=== PATIENT | male | born 1975 | race Caucasian/White ===

== ENCOUNTER → 2018-08-12 | Outpatient (CLI) | payer OTHER ==
[~2018-08-12] MED LIST: INSULIN-HUMA100 U/ML; LANTUS100 U/ML
== END | disposition home or self-care (01) ==
LOC: LAB 08:53
DX: E10.65 Type 1 diabetes mellitus with hyperglycemia (principal)

== ENCOUNTER → 2019-06-30 | Outpatient (CLI) | payer OTHER ==
[2019-06-30 11:13] LABS: FREE T4 1.1 ng/dl (0.76-1.46)
[2019-06-30 11:18] LABS: THYROID STIM HORMONE (HS) 0.005 uIU/ml (0.358-4.75)
[2019-07-01 06:11] LABS: THYROID PEROXIDASE (TPO) AB 9 IU/mL (0-34)
[2019-07-01 12:07] LABS: THYROGLOBULIN ANTIBODY <1.0 IU/mL (0.0-0.9)
[2019-07-03 13:06] LABS: THYROTROPIN RECEPTOR AB 1.16 IU/L (0.00-1.75)
== END | disposition home or self-care (01) ==
LOC: LAB 10:04
PROVIDERS: Internal Medicine
DX: E05.90 Thyrotoxicosis, unspecified without thyrotoxic crisis or storm (principal); E10.65 Type 1 diabetes mellitus with hyperglycemia

== ENCOUNTER 2020-09-23 07:56 | Emergency (ER) | payer OTHER ==
[~2020-09-23] VITALS: Wt 78.9 kg
[2020-09-23 08:01] VITALS: BP 141/95
[2020-09-23 08:30] LABS: BASO % 0.5 % (0.0-1.0); EOS % 0.1 % (1.0-4.0); HEMATOCRIT 47.2 % (42.0-52.0); LYMPH # 1.6 10*3/uL (1.3-4.4); LYMPH % 19.5 % (27.0-41.0); MEAN CELL VOLUME 87.1 fl (80.0-94.0); MEAN CORPUSCULAR HGB 28.6 pg (27.0-31.0); MEAN CORPUSCULAR HGB CONC 32.8 g/dl (33.0-37.0); MEAN PLATELET VOLUME 11.3 fl (9.6-12.3); MONO # 0.9 10*3/uL (0.1-1.0); MONO % 11.1 % (3.0-9.0); NEUT # 5.5 10*3/uL (2.3-7.9); NEUT % 68.7 % (47.0-73.0); PLATELET COUNT AUTOMATED 257 10*3/uL (130-400); RED BLOOD COUNT 5.42 10*6/uL (4.50-5.90); RED CELL DISTRI WIDTH 12.8 % (0-14.5)
[2020-09-23 08:41] LABS: ACT PARTIAL THROMBO TIME 24.5 SECONDS (20.0-32.1); INTERNATIONAL NORM RATIO 1.1 (2.0-3.5)
[2020-09-23 08:47] LABS: ALBUMIN 4.2 gm/dl (3.1-4.5); ALKALINE PHOSPHATASE 129 U/L (45-117); BUN 26 mg/dl (7-24); CHLORIDE 104 mmol/L (98-107); CREATININE 1.24 mg/dL (0.70-1.30); SGOT/AST 29 IU/L (3-35); SGPT/ALT 46 U/L (12-78); SODIUM 138 mmol/L (136-145); TOTAL PROTEIN 8.5 gm/dL (6.4-8.2)
[2020-09-23 08:51] LABS: TROPONIN I < 0.015 ng/ml (<0.045)
[2020-09-23 11:21] LABS: BILIRUBIN Negative (Negative); BLOOD Negative (Negative); CLARITY Clear (Clear); COLOR Yellow (Yellow); GLUCOSE 2+ (Negative); KETONE 4+ (Negative); LEUKO ESTERASE Negative (Negative); NITRITE Negative (Negative); PH 5.5 (4.5-8.0); SPECIFIC GRAVITY >= 1.030 (1.001-1.030)
[2020-09-23 11:33] LABS: WBC 0-2 wbc/hpf (0-5)
[2020-09-23 11:34] LABS: BACTERIA 1+; HYALINE CAST TNTC; MUCOUS 2+
[2020-09-23] MEDS ORDERED: ZOFRAN4 MG PO (13:42)
== END 2020-09-23 13:51 | disposition home or self-care (01) ==
LOC: ED 07:56
PROVIDERS: Emergency Medicine
DX: E10.10 Type 1 diabetes mellitus with ketoacidosis without coma (principal); Z20.822 Contact with and (suspected) exposure to COVID-19; K52.9 Noninfective gastroenteritis and colitis, unspecified; E86.0 Dehydration; R11.2 Nausea with vomiting, unspecified; Z90.89 Acquired absence of other organs; Z98.890 Other specified postprocedural states; Z79.4 Long term (current) use of insulin

== ENCOUNTER 2021-01-30 15:30 | Emergency (ER) | payer OTHER ==
[~2021-01-30] VITALS: Ht 185.4 cm; Wt 88.5 kg
[~2021-01-30 15:30] MED LIST changes: +ZOFRAN4 MG PO
[2021-01-30 15:32] VITALS: BP 138/70
[2021-01-30] MEDS ORDERED: PREDNISONE20 M1 PO (19:35)
[2021-01-30] MEDS ORDERED: ZITHROMAX250 MG PO (19:35)
[2021-01-30] MEDS ORDERED: PROVENTIL HFA6.7 GM INH (19:35)
== END 2021-01-30 19:48 | disposition home or self-care (01) ==
LOC: ED 15:30
DX: J18.9 Pneumonia, unspecified organism (principal); Z20.822 Contact with and (suspected) exposure to COVID-19; Z79.4 Long term (current) use of insulin

== ENCOUNTER → 2021-11-27 | Outpatient (CLI) | payer OTHER ==
[~2021-11-27] MED LIST changes: +PREDNISONE20 M1 PO; +PROVENTIL HFA6.7 GM INH; +ZITHROMAX250 MG PO
[2021-11-28 21:06] LABS: THYROTROPIN RECEPTOR AB 6.73 IU/L (0.00-1.75)
[2021-11-28 22:06] LABS: THYROGLOBULIN ANTIBODY 26.1 IU/mL (0.0-0.9)
== END | disposition home or self-care (01) ==
LOC: NM 07:00 → LAB 07:23
PROVIDERS: ATTEND Internal Medicine
DX: E05.90 Thyrotoxicosis, unspecified without thyrotoxic crisis or storm (principal); R94.6 Abnormal results of thyroid function studies

== ENCOUNTER → 2021-12-30 | Outpatient (CLI) | payer OTHER | LOC: US 08:30 | PROVIDERS: ATTEND Internal Medicine | DX: E04.1 Nontoxic single thyroid nodule (principal) ==

== ENCOUNTER → 2023-07-16 | Outpatient (CLI) | payer OTHER | END | disposition home or self-care (01) | LOC: US 03:02 | PROVIDERS: ATTEND Internal Medicine | DX: E10.65 Type 1 diabetes mellitus with hyperglycemia (principal) ==